=== PATIENT | female | born 1935 | race Caucasian/White ===

== ENCOUNTER → 2017-03-29 | Outpatient (CLI) | payer OTHER ==
[~2017-03-29] MED LIST: ACT30 PO; ASPIR 8181 MG PO; BACTRIM DS1 TAB PO; LAC PO; METFORMIN HCL1000 MG PO; NAMENDA10 M2 PO; REM15 PO; ZOC10 PO
== END | disposition home or self-care (01) ==
LOC: CT 11:42
PROC: BW25ZZZ Computerized Tomography (CT Scan) of Chest, Abdomen and Pelvis (ICD-10-PCS; principal; 2017-03-29)
DX: D49.1 Neoplasm of unspecified behavior of respiratory system (principal)

== ENCOUNTER 2017-06-12 22:02 | Emergency (ER) | payer OTHER ==
[2017-06-12 23:49] LABS: BASOPHIL % 0.3 % (0-2); PLATELET COUNT 191 x10^3mcL (130-400); RED CELL DISTRIBUTION WIDTH 14.5 % (11.5-14.5)
[2017-06-12 23:58] LABS: CALCIUM 8.8 mg/dL (8.5-10.1); CHLORIDE SERUM 110 mmol/L (98-107); CREATININE SERUM 1.1 mg/dL (0.6-1.0); GLUCOSE SERUM 307 mg/dL (74-106); POTASSIUM SERUM 3.9 mmol/L (3.5-5.1); SODIUM SERUM 142 mmol/L (136-145)
[2017-06-13 00:06] LABS: ALBUMIN 3.6 g/dL (3.4-5.0); ALKALINE PHOSPHATASE 79 U/L (46-116); ALT/SGPT 27 U/L (14-59); AMYLASE 52 U/L (25-115); AST/SGOT 15 U/L (15-37); BILIRUBIN TOTAL 0.4 mg/dL (0.20-1.00); LIPASE 219 IU/L (73-393)
[2017-06-13 01:32] LABS: UA SPECIFIC GRAVITY <=1.005 (1.005-1.035); microscopic required? YES; urine erythrocyte NEGATIVE (NEGATIVE)
[2017-06-13 02:06] VITALS: BP 116/64
== END 2017-06-13 02:06 | disposition home or self-care (01) ==
LOC: ED 22:02
PROVIDERS: Emergency Medicine
DX: K31.84 Gastroparesis (principal); N39.0 Urinary tract infection, site not specified
CPT/HCPCS: 83880; J2405; J2765; J7030

== ENCOUNTER 2017-10-07 10:41 | Inpatient (IN) | payer OTHER ==
[~2017-10-07] VITALS: Ht 157.5 cm; Wt 54.0 kg
[2017-10-07 12:22] LABS: ALBUMIN 3.5 g/dL (3.4-5.0); ALKALINE PHOSPHATASE 56 U/L (46-116); ALT/SGPT 26 U/L (14-59); AST/SGOT 25 U/L (15-37); CALCIUM 9.4 mg/dL (8.5-10.1); CARBON DIOXIDE 28.8 mmol/L (21-32); CHLORIDE SERUM 108 mmol/L (98-107); CREATININE SERUM 0.9 mg/dL (0.6-1.0); LIPASE 156 IU/L (73-393); POTASSIUM SERUM 4.6 mmol/L (3.5-5.1); SODIUM SERUM 144 mmol/L (136-145); TOTAL PROTEIN, SERUM 6.7 g/dL (6.4-8.2)
[2017-10-07 12:28] LABS: GLUCOSE SERUM 55 mg/dL (74-106)
[2017-10-07 12:36] LABS: BASOPHIL % 0.1 % (0-2); PLATELET COUNT 204 x10^3mcL (130-400)
[2017-10-07 12:38] LABS: RED CELL DISTRIBUTION WIDTH 22.2 % (11.5-14.5)
[2017-10-07 12:39] LABS: rbc morphology (normal/abnorm) ABNORMAL (NORMAL)
[2017-10-07 12:48] LABS: microscopic required? NO
[2017-10-07 12:56] LABS: urine erythrocyte NEGATIVE (NEGATIVE)
[2017-10-07] MEDS ORDERED: ZOCOR10 MG PO (16:04)
[2017-10-07] MEDS ORDERED: TRAZODONE50 M1 PO (16:04)
[2017-10-07] MEDS ORDERED: ACARBOSE25 MG PO (16:04)
[2017-10-07] MEDS ORDERED: LORAZEPAM0.5 MG PO (16:04)
[2017-10-07] MEDS ORDERED: LANTUS SOLOS100 U/M1 SC (16:05)
[2017-10-07] MEDS ORDERED: LOTENSIN40 MG PO (16:05)
[2017-10-07 16:38] VITALS: BP 138/63
[2017-10-07 16:59] VITALS: BP 138/63
[2017-10-07 17:17] VITALS: Ht 157.5 cm; Wt 54.0 kg
[2017-10-07 18:20] LABS: AMPHETAMINE QUAL UR NONE DETECTED (NEG <=1000)
[2017-10-07 18:51] LABS: MAGNESIUM 2.1 mg/dL (1.8-2.4); PHOSPHOROUS 3.8 mg/dL (2.5-4.9)
[2017-10-07 19:02] LABS: FREE T4 1.02 ng/dL (0.76-1.46); FREE THYROXINE INDEX 2.2 ug/dL (1.4-4.5)
[2017-10-07 19:16] LABS: T3 TOTAL 0.67 ng/mL
[2017-10-07 22:57] VITALS: BP 111/52
[2017-10-08 05:21] VITALS: BP 101/57
[2017-10-08 06:25] LABS: CALCIUM 9.1 mg/dL (8.5-10.1); CARBON DIOXIDE 29.4 mmol/L (21-32); CHLORIDE SERUM 110 mmol/L (98-107); CHOLESTEROL 174 mg/dL (<200); GLUCOSE SERUM 123 mg/dL (74-106); POTASSIUM SERUM 4.1 mmol/L (3.5-5.1); SODIUM SERUM 143 mmol/L (136-145); TRIGLYCERIDES 53 mg/dL (<150)
[2017-10-08 06:37] LABS: CHOLESTEROL/HDL RATIO 2.1; HDL CHOLESTEROL 82 mg/dL (40-60)
[2017-10-08 06:50] LABS: BASOPHIL % 0.5 % (0-2); PLATELET COUNT 191 x10^3mcL (130-400); RED CELL DISTRIBUTION WIDTH 23.7 % (11.5-14.5)
[2017-10-08 06:51] LABS: rbc morphology (normal/abnorm) ABNORMAL (NORMAL)
[2017-10-08 08:45] VITALS: BP 132/64
[2017-10-08 14:15] VITALS: BP 134/60
[2017-10-08 15:23] LABS: IRON 63 ug/dL (50-170); TOTAL IRON BINDING CAPACITY 359 ug/dL (250-450)
[2017-10-08 15:45] LABS: RED BLOOD CELLS 3.61 M/mm3 (4.10-5.10)
[2017-10-08 16:53] VITALS: BP 109/56
[2017-10-08 18:14] VITALS: BP 121/60
[2017-10-08 21:07] VITALS: BP 94/43
[2017-10-09 06:26] VITALS: BP 145/72
[2017-10-09 09:37] VITALS: BP 136/65
[2017-10-09 09:39] LABS: BASOPHIL % 0.4 % (0-2); PLATELET COUNT 188 x10^3mcL (130-400)
[2017-10-09 09:43] LABS: RED CELL DISTRIBUTION WIDTH 23.7 % (11.5-14.5)
[2017-10-09 10:01] LABS: CALCIUM 8.9 mg/dL (8.5-10.1); CARBON DIOXIDE 28.2 mmol/L (21-32); CHLORIDE SERUM 108 mmol/L (98-107); CREATININE SERUM 1.1 mg/dL (0.6-1.0); GLUCOSE SERUM 199 mg/dL (74-106); MAGNESIUM 1.8 mg/dL (1.8-2.4); PHOSPHOROUS 2.7 mg/dL (2.5-4.9); SODIUM SERUM 142 mmol/L (136-145)
[2017-10-09 17:30] VITALS: BP 156/66
[2017-10-09 18:49] VITALS: BP 169/74
[2017-10-09 21:04] VITALS: BP 105/36
[2017-10-10 05:30] VITALS: BP 127/74
[2017-10-10 13:40] VITALS: BP 123/76
[2017-10-10] MEDS ORDERED: METFORMIN HCL500 MG PO (13:41)
[2017-10-10] MEDS ORDERED: ZYP5 PO (13:42)
[2017-10-10] MEDS ORDERED: FERROUS SULFAT325 M2 PO (13:43)
[2017-10-10] MEDS ORDERED: VITAMIN C100 M2 PO (13:43)
== END 2017-10-10 18:52 | DRG 637 ==
LOC: ED 10:41 → DU 15:29 → MU 15:29 → DU 16:27 → MU 10-09 09:06
PROVIDERS: Emergency Medicine; ADMIT Student in an Organized Health Care Education/Training Program
DX: E11.649 Type 2 diabetes mellitus with hypoglycemia without coma (principal); G93.41 Metabolic encephalopathy; G90.9 Disorder of the autonomic nervous system, unspecified; R29.810 Facial weakness; R47.81 Slurred speech; R91.8 Other nonspecific abnormal finding of lung field; N17.0 Acute kidney failure with tubular necrosis; E11.65 Type 2 diabetes mellitus with hyperglycemia; E11.51 Type 2 diabetes mellitus with diabetic peripheral angiopathy without gangrene; I10 Essential (primary) hypertension; D50.9 Iron deficiency anemia, unspecified; F03.90 Unspecified dementia, unspecified severity, without behavioral disturbance, psychotic disturbance, mood disturbance, and anxiety; F32.9 Major depressive disorder, single episode, unspecified; Z68.21 Body mass index [BMI] 21.0-21.9, adult; Z79.4 Long term (current) use of insulin; Z86.73 Personal history of transient ischemic attack (TIA), and cerebral infarction without residual deficits
CPT/HCPCS: 82962; 83880; 84439; 97110-GP; 97116-GP; 97530-GP; J1630; J2060; J3490; J7030; Q0092